=== PATIENT | female | born 1970 | race Caucasian/White ===

== ENCOUNTER → 2017-08-08 | Outpatient (CLI) | payer OTHER ==
[~2017-08-08] MED LIST: DIATR MEGLU/DIATRIZOATE SODIUM 120 ML BTL
== END | disposition home or self-care (01) ==
LOC: RAD 09:45
DX: Z93.2 Ileostomy status (principal)
CPT/HCPCS: 74270

== ENCOUNTER 2017-08-21 12:30 | Inpatient (IN) | payer OTHER ==
[2017-08-21] MEDS ORDERED: CEFAZOLIN 2 GM/50 ML (PMX) 50 ML IVPB (14:00)
[2017-08-21] MEDS ORDERED: MIDAZOLAM 1 MG/ML 2 ML INJ ×2 (14:42→14:44)
[2017-08-21] MEDS ORDERED: PROPOFOL 20 ML ×2 (14:42→15:39)
[2017-08-21] MEDS ORDERED: FENTAnyl 50 MCG/ML VIAL (14:42)
[2017-08-21] MEDS ORDERED: ROCURONIUM 50 MG INJ (14:42)
[2017-08-21] MEDS ORDERED: LIDOCAINE 2% (SDV) 5 ML INJ (14:42)
[2017-08-21] MEDS ORDERED: SUCCINYLCHOLINE CHLORIDE 100 MG/5 ML SYG IV (14:42)
[2017-08-21] MEDS ORDERED: CEFAZOLIN 1 GM INJ ×2 (15:14→15:23)
[2017-08-21] MEDS ORDERED: ONDANSETRON 4 MG INJ ×2 (15:23→16:23)
[2017-08-21] MEDS ORDERED: DEXAMETHASONE 4 MG/ML 1 ML INJ (15:23)
[2017-08-21] MEDS ORDERED: FAMOTIDINE 20 MG INJ (15:23)
[2017-08-21] MEDS ORDERED: HYDROmorphONE 2 MG/ML SYG (15:25)
[2017-08-21] MEDS: BUPIVACAINE 0.25%/EPI (SDV) 30 ML INJ (15:25)
[2017-08-21] MEDS ORDERED: hydrALAzine 20 MG INJ (15:26)
[2017-08-21] MEDS ORDERED: LABETALOL HCL 20MG INJ (15:40)
[2017-08-21] MEDS ORDERED: SUGAMMADEX SODIUM 200 MG/2 ML VIAL IV ×2 (16:01→16:02)
[2017-08-21] MEDS ORDERED: HYDROmorphONE (0.2 MG/ML) 10ML SYG IV ×3 (16:23→16:30)
[2017-08-21] MEDS ORDERED: LABETALOL HCL 20MG INJ IV (16:30)
[2017-08-21] MEDS ORDERED: hydrALAzine 20 MG INJ IV (16:30)
[2017-08-21] MEDS ORDERED: ONDANSETRON 4 MG INJ IV (16:30)
[2017-08-21] MEDS ORDERED: FENTAnyl 50 MCG/ML VIAL IV ×2 (16:30)
[2017-08-21] MEDS ORDERED: PROCHLORPERAZINE 10 MG INJ IV (16:30)
[2017-08-21] MEDS ORDERED: MEPERIDINE 25 MG INJ IV (16:30)
[2017-08-21] MEDS: HYDROmorphONE (0.2 MG/ML) 10ML SYG IV ×3 (16:41→17:02)
[2017-08-21] MEDS: CEFAZOLIN 2 GM/50 ML (PMX) 50 ML IVPB (16:45)
[2017-08-21 17:03] LABS: HEMATOCRIT 40.9 % (37.0-47.0); HEMOGLOBIN 12.9 g/dl (12.0-16.0)
[2017-08-21] MEDS: FENTAnyl 50 MCG/ML VIAL IV ×2 (17:21→18:23)
[2017-08-21] MEDS: DIPHENHYDRAMINE 50 MG INJ IV ×2 (17:25→22:03)
[2017-08-21 17:32] LABS: ANION GAP 16 (8-16); CARBON DIOXIDE 26 mmol/L (21-31); CHLORIDE 104 mmol/L (97-110); GLUCOSE 115 mg/dl (70-220)
[2017-08-21 17:38] LABS: BLOOD UREA NITROGEN 10 mg/dl (7-20); CALCIUM 9.5 mg/dl (8.4-10.2); CREATININE 0.77 mg/dl (0.44-1.00); POTASSIUM 3.7 mmol/L (3.5-5.1); SODIUM 142 mmol/L (135-144)
[2017-08-21] MEDS: D5W-0.45 NACL + KCL 10 MEQ 1,000 ML IV (20:54)
[2017-08-21] MEDS: HYDROmorphONE 0.5 MG/0.5 ML SYG IV (20:55)
[2017-08-21] MEDS: LORAZEPAM 2 MG INJ IV (22:03)
[2017-08-22] MEDS: CEFAZOLIN 2 GM/50 ML (PMX) 50 ML IVPB ×2 (00:53→09:01)
[2017-08-22] MEDS: HYDROmorphONE 0.5 MG/0.5 ML SYG IV ×7 (00:57→21:53)
[2017-08-22] MEDS: D5W-0.45 NACL + KCL 10 MEQ 1,000 ML IV ×2 (05:09→13:51)
[2017-08-22] MEDS: PANTOPRAZOLE (EC) 40 MG TAB PO (05:09)
[2017-08-22] MEDS: LORAZEPAM 2 MG INJ IV ×3 (05:22→22:41)
[2017-08-22 06:27] LABS: ADD MAN DIFF? NO
[2017-08-22 06:32] LABS: WHITE BLOOD COUNT 9.2 10^3/ul (4.8-10.8)
[2017-08-22 06:32] LABS: BASOPHILS % 0.3 % (0.0-2.0); EOSINOPHILS % 0.3 % (0.0-7.0); HEMATOCRIT 35.6 % (37.0-47.0); HEMOGLOBIN 11.5 g/dl (12.0-16.0); LYMPHOCYTES % 10.8 % (15.0-51.0); MEAN CORPUSCULAR HEMOGLOBIN 28.1 pg (29.0-33.0); MEAN CORPUSCULAR HGB CONC 32.3 g/dl (32.0-37.0); MEAN PLATELET VOLUME 9.2 fl (7.4-10.4); MONOCYTE # 0.7 10^3/ul (0.3-0.9); MONOCYTES % 7.9 % (0.0-11.0); NEUTROPHIL # 7.4 10^3/ul (1.6-7.5); NEUTROPHILS % 80.3 % (39.0-77.0); PLATELET COUNT 235 10^3/UL (140-415); RED BLOOD COUNT 4.09 10^6/ul (4.20-5.40); RED CELL DISTRIBUTION WIDTH 18.5 % (11.5-14.5)
[2017-08-22 07:01] LABS: ANION GAP 17 (8-16); BLOOD UREA NITROGEN 7 mg/dl (7-20); CARBON DIOXIDE 25 mmol/L (21-31); CHLORIDE 103 mmol/L (97-110); CREATININE 0.76 mg/dl (0.44-1.00); GLUCOSE 108 mg/dl (70-220); POTASSIUM 3.9 mmol/L (3.5-5.1); SODIUM 141 mmol/L (135-144)
[2017-08-22 07:08] LABS: INR 0.92; PROTIME 12.4 Sec (11.9-14.9)
[2017-08-22] MEDS: ENOXAPARIN 40 MG/0.4 ML SYG SC (09:04)
[2017-08-22] MEDS: KETOROLAC 15 MG INJ IV ×2 (12:33→18:21)
[2017-08-22] MEDS: ONDANSETRON 4 MG INJ IV (12:33)
[2017-08-23] MEDS: KETOROLAC 15 MG INJ IV ×4 (00:17→18:34)
[2017-08-23] MEDS: LORAZEPAM 2 MG INJ IV ×3 (02:43→22:10)
[2017-08-23] MEDS: D5W-0.45 NACL + KCL 10 MEQ 1,000 ML IV ×2 (02:49→22:09)
[2017-08-23] MEDS: HYDROmorphONE 0.5 MG/0.5 ML SYG IV ×2 (05:04→07:58)
[2017-08-23 05:09] LABS: ADD MAN DIFF? NO
[2017-08-23 05:10] LABS: WHITE BLOOD COUNT 7.1 10^3/ul (4.8-10.8)
[2017-08-23 05:10] LABS: BASOPHILS % 0.6 % (0.0-2.0); EOSINOPHILS # 0.4 10^3/ul (0.0-0.5); EOSINOPHILS % 5.6 % (0.0-7.0); HEMATOCRIT 36.5 % (37.0-47.0); HEMOGLOBIN 12.1 g/dl (12.0-16.0); LYMPHOCYTES # 1.3 10^3/ul (0.8-2.9); LYMPHOCYTES % 18.4 % (15.0-51.0); MEAN CORPUSCULAR HEMOGLOBIN 28.5 pg (29.0-33.0); MEAN CORPUSCULAR HGB CONC 33.2 g/dl (32.0-37.0); MEAN CORPUSCULAR VOLUME 86.1 fl (82.0-101.0); MONOCYTE # 0.6 10^3/ul (0.3-0.9); MONOCYTES % 8.7 % (0.0-11.0); NEUTROPHIL # 4.7 10^3/ul (1.6-7.5); NEUTROPHILS % 66.3 % (39.0-77.0); PLATELET COUNT 232 10^3/UL (140-415); RED BLOOD COUNT 4.24 10^6/ul (4.20-5.40); RED CELL DISTRIBUTION WIDTH 18.5 % (11.5-14.5)
[2017-08-23 05:32] LABS: MAGNESIUM 1.7 mg/dl (1.7-2.5)
[2017-08-23 05:32] LABS: PHOSPHORUS 3.5 mg/dl (2.5-4.9)
[2017-08-23 05:41] LABS: ANION GAP 16 (8-16); BLOOD UREA NITROGEN 5 mg/dl (7-20); CALCIUM 9.2 mg/dl (8.4-10.2); CARBON DIOXIDE 24 mmol/L (21-31); CHLORIDE 104 mmol/L (97-110); CREATININE 0.84 mg/dl (0.44-1.00); GLUCOSE 105 mg/dl (70-220); SODIUM 140 mmol/L (135-144)
[2017-08-23] MEDS: PANTOPRAZOLE (EC) 40 MG TAB PO (06:29)
[2017-08-23] MEDS: ENOXAPARIN 40 MG/0.4 ML SYG SC (10:03)
[2017-08-23] MEDS: MAGNESIUM SULFATE 2 GM/50 ML 50 ML IVPB (10:07)
[2017-08-23] MEDS ORDERED: HYDROmorphONE 2 MG TAB PO (11:30)
[2017-08-23] MEDS: HYDROmorphONE 2 MG TAB PO ×4 (12:25→21:00)
[2017-08-23] MEDS ORDERED: VITAMIN A & D 5 GM OINT PACKET TOP (18:39)
[2017-08-24] MEDS: D5W-0.45 NACL + KCL 10 MEQ 1,000 ML IV ×2 (00:05→23:04)
[2017-08-24] MEDS: KETOROLAC 15 MG INJ IV ×4 (00:49→11:54)
[2017-08-24] MEDS: OXYCODONE/ACETAMINOPHEN (10/325) TAB PO ×5 (02:17→23:14)
[2017-08-24 05:20] LABS: ADD MAN DIFF? NO
[2017-08-24 05:25] LABS: BASOPHILS % 0.5 % (0.0-2.0); EOSINOPHILS # 0.5 10^3/ul (0.0-0.5); EOSINOPHILS % 8.9 % (0.0-7.0); HEMATOCRIT 32.3 % (37.0-47.0); HEMOGLOBIN 10.5 g/dl (12.0-16.0); LYMPHOCYTES # 0.9 10^3/ul (0.8-2.9); LYMPHOCYTES % 14.7 % (15.0-51.0); MEAN CORPUSCULAR HEMOGLOBIN 28.2 pg (29.0-33.0); MEAN CORPUSCULAR HGB CONC 32.5 g/dl (32.0-37.0); MEAN CORPUSCULAR VOLUME 86.8 fl (82.0-101.0); MEAN PLATELET VOLUME 9.2 fl (7.4-10.4); MONOCYTE # 0.6 10^3/ul (0.3-0.9); MONOCYTES % 10.4 % (0.0-11.0); NEUTROPHIL # 3.8 10^3/ul (1.6-7.5); PLATELET COUNT 206 10^3/UL (140-415); RED BLOOD COUNT 3.72 10^6/ul (4.20-5.40); RED CELL DISTRIBUTION WIDTH 18.2 % (11.5-14.5)
[2017-08-24 05:25] LABS: WHITE BLOOD COUNT 5.9 10^3/ul (4.8-10.8)
[2017-08-24] MEDS: PANTOPRAZOLE (EC) 40 MG TAB PO (06:03)
[2017-08-24 06:06] LABS: ANION GAP 12 (8-16); BLOOD UREA NITROGEN 6 mg/dl (7-20); CALCIUM 8.8 mg/dl (8.4-10.2); CARBON DIOXIDE 27 mmol/L (21-31); CHLORIDE 106 mmol/L (97-110); CREATININE 0.77 mg/dl (0.44-1.00); GLUCOSE 99 mg/dl (70-220); SODIUM 141 mmol/L (135-144)
[2017-08-24 06:07] LABS: PHOSPHORUS 3.9 mg/dl (2.5-4.9)
[2017-08-24 06:07] LABS: MAGNESIUM 2.1 mg/dl (1.7-2.5)
[2017-08-24] MEDS: ENOXAPARIN 40 MG/0.4 ML SYG SC (09:37)
[2017-08-24] MEDS: ONDANSETRON 4 MG INJ IV (11:55)
[2017-08-24] MEDS: HYDROmorphONE 2 MG TAB PO ×2 (12:16→20:24)
[2017-08-24] MEDS ORDERED: ONDANSETRON 4 MG TAB PO (15:00)
[2017-08-24] MEDS ORDERED: LORAZEPAM 0.5 MG TAB PO (15:00)
[2017-08-24] MEDS: LORAZEPAM 0.5 MG TAB PO (21:34)
[2017-08-25] MEDS: OXYCODONE/ACETAMINOPHEN (10/325) TAB PO ×2 (03:45→10:00)
[2017-08-25 05:24] LABS: ADD MAN DIFF? NO
[2017-08-25 05:32] LABS: BASOPHILS % 0.4 % (0.0-2.0); EOSINOPHILS # 0.6 10^3/ul (0.0-0.5); EOSINOPHILS % 10.8 % (0.0-7.0); HEMATOCRIT 31.6 % (37.0-47.0); HEMOGLOBIN 10.4 g/dl (12.0-16.0); LYMPHOCYTES # 0.8 10^3/ul (0.8-2.9); LYMPHOCYTES % 14.5 % (15.0-51.0); MEAN CORPUSCULAR HEMOGLOBIN 28.6 pg (29.0-33.0); MEAN CORPUSCULAR HGB CONC 32.9 g/dl (32.0-37.0); MEAN CORPUSCULAR VOLUME 86.8 fl (82.0-101.0); MEAN PLATELET VOLUME 9.3 fl (7.4-10.4); MONOCYTE # 0.5 10^3/ul (0.3-0.9); MONOCYTES % 9.9 % (0.0-11.0); NEUTROPHIL # 3.5 10^3/ul (1.6-7.5); PLATELET COUNT 226 10^3/UL (140-415); RED BLOOD COUNT 3.64 10^6/ul (4.20-5.40)
[2017-08-25 05:32] LABS: WHITE BLOOD COUNT 5.5 10^3/ul (4.8-10.8)
[2017-08-25 06:07] LABS: ANION GAP 13 (8-16); BLOOD UREA NITROGEN 6 mg/dl (7-20); CALCIUM 9.1 mg/dl (8.4-10.2); CARBON DIOXIDE 27 mmol/L (21-31); CHLORIDE 105 mmol/L (97-110); CREATININE 0.75 mg/dl (0.44-1.00); GLUCOSE 101 mg/dl (70-220); POTASSIUM 3.7 mmol/L (3.5-5.1); SODIUM 141 mmol/L (135-144)
[2017-08-25 06:20] LABS: MAGNESIUM 1.7 mg/dl (1.7-2.5)
[2017-08-25 06:20] LABS: PHOSPHORUS 4.3 mg/dl (2.5-4.9)
[2017-08-25] MEDS: PANTOPRAZOLE (EC) 40 MG TAB PO (06:23)
[2017-08-25] MEDS ORDERED: VITAMIN A & D 5 GM OINT PACKET TOP (06:26)
[2017-08-25] MEDS: HYDROmorphONE 2 MG TAB PO (06:29)
[2017-08-25] MEDS ORDERED: LORAZEPAM 0.5 MG TAB PO ×2 (10:00→10:30)
[2017-08-25] MEDS ORDERED: oxyCODONE 5 MG TAB PO (10:00)
[2017-08-25] MEDS: ACETAMINOPHEN 325 MG TAB PO (11:53)
[2017-08-25] MEDS: ONDANSETRON 4 MG TAB PO (11:53)
== END 2017-08-25 13:51 | disposition home or self-care (01) | DRG 331 ==
LOC: REC 12:30 → MS1 21:33
PROC: 0DBB0ZZ Excision of Ileum, Open Approach (ICD-10-PCS; principal; 2017-08-21 14:30)
PROC: 0WQF0ZZ Repair Abdominal Wall, Open Approach (ICD-10-PCS; 2017-08-21 14:30)
PROC: 0D7Q8ZZ Dilation of Anus, Via Natural or Artificial Opening Endoscopic (ICD-10-PCS; 2017-08-21 14:30)
DX: Z43.2 Encounter for attention to ileostomy (principal); K62.4 Stenosis of anus and rectum; K43.5 Parastomal hernia without obstruction or gangrene; Z85.048 Personal history of other malignant neoplasm of rectum, rectosigmoid junction, and anus; Z92.21 Personal history of antineoplastic chemotherapy; Z92.3 Personal history of irradiation
CPT/HCPCS: 80048; 83735; 84100; 84703; 85014; 85018; 85025; 85610; 87086; 88305; 97116; 97530

== ENCOUNTER 2017-12-19 11:57 | Day surgery (SDC) | payer OTHER ==
[~2017-12-19 11:57] MED LIST changes: +BUPIVACAINE 0.5%/EPI (SDV) 30 ML INJ; -DIATR MEGLU/DIATRIZOATE SODIUM 120 ML BTL; +METOCLOPRAMIDE 10 MG INJ
[2017-12-19] MEDS: LACTATED RINGER'S 1,000 ML IV* (13:00)
[2017-12-19] MEDS ORDERED: ROCURONIUM 50 MG INJ (13:33)
[2017-12-19] MEDS ORDERED: CEFAZOLIN 1 GM INJ (13:33)
[2017-12-19] MEDS ORDERED: PROPOFOL 20 ML (13:33)
[2017-12-19] MEDS ORDERED: MIDAZOLAM 1 MG/ML 2 ML INJ (13:34)
[2017-12-19] MEDS ORDERED: ROPIVACAINE 0.5 % 30 ML VIAL (13:36)
[2017-12-19] MEDS: ROPIVACAINE 0.5 % 30 ML VIAL (14:48)
[2017-12-19] MEDS: POLYMYXIN/BACITRACIN 1L IRRIG (14:48)
[2017-12-19] MEDS ORDERED: LABETALOL HCL 20MG INJ (14:49)
[2017-12-19] MEDS ORDERED: ONDANSETRON 4 MG INJ (14:50)
[2017-12-19] MEDS ORDERED: ACETAMINOPHEN 1000MG/100ML IV 100 ML (14:50)
[2017-12-19] MEDS ORDERED: KETOROLAC 30 MG INJ (14:50)
[2017-12-19] MEDS ORDERED: SUGAMMADEX SODIUM 200 MG/2 ML VIAL IV (14:50)
[2017-12-19] MEDS ORDERED: DEXAMETHASONE 4 MG/ML 1 ML INJ (14:50)
[2017-12-19] MEDS ORDERED: hydrALAzine 20 MG INJ (14:57)
[2017-12-19] MEDS ORDERED: EPHEDrine SULFATE 50 MG/5 ML SYG IV (15:00)
[2017-12-19] MEDS ORDERED: HYDROmorphONE (0.2 MG/ML) 10ML SYG IV ×2 (15:00)
[2017-12-19] MEDS ORDERED: OXYCODONE/ACETAMINOPHEN (5/325) TAB PO ×2 (15:00)
[2017-12-19] MEDS ORDERED: METOCLOPRAMIDE 10 MG INJ IV (15:00)
[2017-12-19] MEDS ORDERED: FENTAnyl 50 MCG/ML VIAL IV ×2 (15:00)
[2017-12-19] MEDS ORDERED: ONDANSETRON 4 MG INJ IV ×2 (15:00→16:00)
[2017-12-19] MEDS ORDERED: hydrALAzine 20 MG INJ IV (15:00)
[2017-12-19] MEDS ORDERED: MEPERIDINE 25 MG INJ IV (15:00)
[2017-12-19] MEDS ORDERED: LABETALOL HCL 20MG INJ IV (15:00)
[2017-12-19] MEDS ORDERED: FENTAnyl 50 MCG/ML VIAL (15:33)
[2017-12-19] MEDS: D5W-0.45 NACL + KCL 10 MEQ 1,000 ML IV ×2 (15:47→22:05)
[2017-12-19] MEDS: HYDROmorphONE (0.2 MG/ML) 10ML SYG IV (15:59)
[2017-12-19] MEDS: CEFAZOLIN 2 GM/50 ML (PMX) 50 ML IVPB ×3 (16:00→23:48)
[2017-12-19] MEDS ORDERED: DIPHENHYDRAMINE 50 MG INJ IV (16:00)
[2017-12-19] MEDS ORDERED: LORAZEPAM 2 MG INJ IV (16:00)
[2017-12-19] MEDS: FENTAnyl 50 MCG/ML VIAL IV (16:17)
[2017-12-19] MEDS: DIPHENHYDRAMINE 50 MG INJ IV (16:50)
[2017-12-19 17:20] LABS: HEMATOCRIT 37.7 % (37.0-47.0); HEMOGLOBIN 12.7 g/dl (12.0-16.0)
[2017-12-19 17:38] LABS: ANION GAP 12 (8-16); CARBON DIOXIDE 30 mmol/L (21-31); CHLORIDE 100 mmol/L (97-110); GLUCOSE 116 mg/dl (70-220)
[2017-12-19 17:40] LABS: BLOOD UREA NITROGEN 9 mg/dl (7-20); CREATININE 0.77 mg/dl (0.44-1.00); SODIUM 138 mmol/L (135-144)
[2017-12-19] MEDS: HYDROmorphONE 0.5 MG/0.5 ML SYG IV (19:21)
[2017-12-19] MEDS: HYDROCODONE/APAP (10/325) TAB PO (21:04)
[2017-12-19] MEDS: HYDROmorphONE 2 MG/ML SYG IV (22:05)
[2017-12-19] MEDS: LORAZEPAM 2 MG INJ IV (23:49)
[2017-12-20] MEDS: HYDROmorphONE 2 MG/ML SYG IV ×5 (04:31→21:37)
[2017-12-20 05:35] LABS: ADD MAN DIFF? NO
[2017-12-20 05:38] LABS: BASOPHILS % 0.1 % (0.0-2.0); HEMATOCRIT 35.5 % (37.0-47.0); HEMOGLOBIN 11.8 g/dl (12.0-16.0); LYMPHOCYTES # 0.8 10^3/ul (0.8-2.9); LYMPHOCYTES % 5.3 % (15.0-51.0); MEAN CORPUSCULAR HEMOGLOBIN 31.6 pg (29.0-33.0); MEAN CORPUSCULAR HGB CONC 33.2 g/dl (32.0-37.0); MEAN CORPUSCULAR VOLUME 94.9 fl (82.0-101.0); MONOCYTE # 0.9 10^3/ul (0.3-0.9); MONOCYTES % 5.9 % (0.0-11.0); NEUTROPHIL # 13.1 10^3/ul (1.6-7.5); NEUTROPHILS % 88.1 % (39.0-77.0); PLATELET COUNT 203 10^3/UL (140-415); RED BLOOD COUNT 3.74 10^6/ul (4.20-5.40)
[2017-12-20 05:38] LABS: WHITE BLOOD COUNT 14.8 10^3/ul (4.8-10.8)
[2017-12-20 06:09] LABS: ANION GAP 15 (8-16); BLOOD UREA NITROGEN 10 mg/dl (7-20); CALCIUM 9.6 mg/dl (8.4-10.2); CARBON DIOXIDE 28 mmol/L (21-31); CHLORIDE 105 mmol/L (97-110); CREATININE 0.76 mg/dl (0.44-1.00); GLUCOSE 138 mg/dl (70-220); POTASSIUM 4.5 mmol/L (3.5-5.1); SODIUM 143 mmol/L (135-144)
[2017-12-20 06:15] LABS: PROTIME 14.4 Sec (11.9-14.9); PT RATIO 1.1
[2017-12-20] MEDS: PANTOPRAZOLE (EC) 40 MG TAB PO (06:38)
[2017-12-20] MEDS: LORAZEPAM 2 MG INJ IV ×3 (06:39→18:54)
[2017-12-20] MEDS: CEFAZOLIN 2 GM/50 ML (PMX) 50 ML IVPB (08:06)
[2017-12-20] MEDS: OXYCODONE/ACETAMINOPHEN (10/325) TAB PO ×2 (09:54→20:43)
[2017-12-20] MEDS: D5W-0.45 NACL + KCL 10 MEQ 1,000 ML IV (13:08)
[2017-12-20] MEDS: AMITRIPTYLINE 10 MG TAB PO (20:40)
[2017-12-21] MEDS: LORAZEPAM 2 MG INJ IV ×2 (00:44→06:42)
[2017-12-21] MEDS: D5W-0.45 NACL + KCL 10 MEQ 1,000 ML IV (00:49)
[2017-12-21] MEDS: HYDROmorphONE 2 MG/ML SYG IV ×2 (01:11→04:31)
[2017-12-21] MEDS: PANTOPRAZOLE (EC) 40 MG TAB PO (06:41)
[2017-12-21] MEDS: KETOROLAC 15 MG INJ IV ×2 (08:33→14:19)
[2017-12-21] MEDS: OXYCODONE/ACETAMINOPHEN (10/325) TAB PO (09:24)
[2017-12-21 10:20] LABS: ADD MAN DIFF? NO
[2017-12-21 10:25] LABS: ABNORMAL IP MESSAGE 1; BASOPHILS % 0.1 % (0.0-2.0); EOSINOPHILS # 0.3 10^3/ul (0.0-0.5); EOSINOPHILS % 2.8 % (0.0-7.0); HEMATOCRIT 33.2 % (37.0-47.0); HEMOGLOBIN 11.1 g/dl (12.0-16.0); LYMPHOCYTES % 10.8 % (15.0-51.0); MEAN CORPUSCULAR HEMOGLOBIN 32.7 pg (29.0-33.0); MEAN CORPUSCULAR HGB CONC 33.4 g/dl (32.0-37.0); MEAN CORPUSCULAR VOLUME 97.9 fl (82.0-101.0); MEAN PLATELET VOLUME 9.7 fl (7.4-10.4); NEUTROPHIL # 6.7 10^3/ul (1.6-7.5); NEUTROPHILS % 74.7 % (39.0-77.0); PLATELET COUNT 183 10^3/UL (140-415); RED BLOOD COUNT 3.39 10^6/ul (4.20-5.40); RED CELL DISTRIBUTION WIDTH 22.5 % (11.5-14.5)
== END 2017-12-21 15:15 | disposition home or self-care (01) ==
LOC: SDS 11:57 → REC 18:00 → SDS 12-21 15:15 → MS1 18:00 → REC 15:55 → MS1 18:00
DX: I10 Essential (primary) hypertension (principal)
CPT/HCPCS: 49560; 80048; 85014; 85018; 85025; 85610; 88302; 97161

== ENCOUNTER 2018-07-02 07:46 | Day surgery (SDC) | payer OTHER | END 2018-07-02 11:54 | disposition home or self-care (01) | LOC: GIL 07:46 | DX: K22.10 Ulcer of esophagus without bleeding (principal); K29.50 Unspecified chronic gastritis without bleeding; K29.80 Duodenitis without bleeding; I10 Essential (primary) hypertension; Z85.048 Personal history of other malignant neoplasm of rectum, rectosigmoid junction, and anus | CPT/HCPCS: 43239; 88305; 88312 ==

== ENCOUNTER 2018-09-09 10:48 | Observation (INO) | payer OTHER ==
[~2018-09-09 10:48] MED LIST changes: -BUPIVACAINE 0.5%/EPI (SDV) 30 ML INJ; +CEFAZOLIN 1 GM INJ; -METOCLOPRAMIDE 10 MG INJ; +SUCCINYLCHOLINE CHLORIDE 100 MG/5 ML SYG IV
[2018-09-09] MEDS ORDERED: GLYCOPYRROLATE 0.4 MG INJ (10:59)
[2018-09-09] MEDS ORDERED: MIDAZOLAM 1 MG/ML 2 ML INJ (10:59)
[2018-09-09] MEDS ORDERED: LIDOCAINE 2% (SDV) 5 ML INJ (10:59)
[2018-09-09] MEDS ORDERED: NEOSTIGMINE 3 MG/3 ML SYRINGE (10:59)
[2018-09-09] MEDS ORDERED: ROCURONIUM 50 MG INJ (10:59)
[2018-09-09] MEDS ORDERED: PROPOFOL 20 ML (10:59)
[2018-09-09] MEDS ORDERED: FENTAnyl 50 MCG/ML VIAL (10:59)
[2018-09-09] MEDS ORDERED: ONDANSETRON 4 MG INJ (11:00)
[2018-09-09] MEDS ORDERED: DEXAMETHASONE 4 MG/ML 5 ML INJ (11:00)
[2018-09-09] MEDS ORDERED: LACTATED RINGER'S 1,000 ML IV (12:30)
[2018-09-09] MEDS: LACTATED RINGER'S 1,000 ML IV ×2 (13:57→22:40)
[2018-09-09] MEDS ORDERED: ONDANSETRON 4 MG INJ IV ×2 (14:00→15:00)
[2018-09-09] MEDS ORDERED: HYDROCODONE/APAP (10/325) TAB PO (14:00)
[2018-09-09] MEDS ORDERED: DIPHENHYDRAMINE 50 MG INJ IV (14:00)
[2018-09-09] MEDS: BUPIVACAINE 0.25% (MPF) 30 ML INJ (14:30)
[2018-09-09] MEDS: KETOROLAC 15 MG INJ IV ×2 (14:30→20:35)
[2018-09-09] MEDS: CEFAZOLIN 2 GM/50 ML (PMX) 50 ML IVPB ×2 (14:31→21:30)
[2018-09-09 14:36] LABS: ADD UMIC NO; UR ASCORBIC ACID NEGATIVE (NEGATIVE); UR BILIRUBIN (Dip) NEGATIVE (NEGATIVE); UR BLOOD (Dip) NEGATIVE (NEGATIVE); UR CLARITY CLEAR (CLEAR); UR COLOR COLORLESS (YELLOW); UR GLUCOSE (Dip) NEGATIVE (NEGATIVE); UR KETONES (Dip) TRACE mg/dL (NEGATIVE); UR LEUKOCYTE ESTERASE (Dip) NEGATIVE Leu/ul (NEGATIVE); UR NITRITE (Dip) NEGATIVE (NEGATIVE); UR SPECIFIC GRAVITY (Dip) 1.005 (1.003-1.030); UR TOTAL PROTEIN (Dip) NEGATIVE (NEGATIVE); UR UROBILINOGEN (Dip) NEGATIVE (NEGATIVE)
[2018-09-09] MEDS: HYDROmorphONE 0.5 MG/0.5 ML SYG IV ×2 (14:53→18:45)
[2018-09-09] MEDS ORDERED: HYDROmorphONE 1 MG/5 ML IV SYRINGE IV ×3 (15:00→15:29)
[2018-09-09] MEDS ORDERED: MEPERIDINE 25 MG INJ IV (15:00)
[2018-09-09] MEDS ORDERED: hydrALAzine 20 MG INJ IV (15:00)
[2018-09-09] MEDS ORDERED: FENTAnyl 50 MCG/ML VIAL IV ×3 (15:00)
[2018-09-09] MEDS ORDERED: morphine (1 MG/ML) 10ML SYRINGE IV (15:00)
[2018-09-09] MEDS: ACETAMINOPHEN 1000MG/100ML IV 100 ML IVPB ×2 (15:02→20:07)
[2018-09-09 15:04] LABS: HEMATOCRIT 38.3 % (37.0-47.0); HEMOGLOBIN 12.4 g/dl (12.0-16.0)
[2018-09-09 15:26] LABS: ANION GAP 7 (5-13); BLOOD UREA NITROGEN 8 mg/dl (7-20); CALCIUM 9.4 mg/dl (8.4-10.2); CARBON DIOXIDE 27 mmol/L (21-31); CHLORIDE 104 mmol/L (97-110); CREATININE 0.85 mg/dl (0.44-1.00); Estimated GFR > 60 mL/min (>60); GLUCOSE 108 mg/dl (70-220); POTASSIUM 4.2 mmol/L (3.5-5.1); SODIUM 138 mmol/L (135-144)
[2018-09-09] MEDS: HYDROmorphONE 1 MG/5 ML IV SYRINGE IV (15:46)
[2018-09-09] MEDS: OXYCODONE/ACETAMINOPHEN (10/325) TAB PO ×2 (16:45→21:32)
[2018-09-09] MEDS: LORAZEPAM 2 MG INJ IV (22:34)
[2018-09-10] MEDS: ACETAMINOPHEN 1000MG/100ML IV 100 ML IVPB ×3 (02:13→13:21)
[2018-09-10] MEDS: KETOROLAC 15 MG INJ IV ×2 (02:53→13:19)
[2018-09-10] MEDS: CEFAZOLIN 2 GM/50 ML (PMX) 50 ML IVPB (05:11)
[2018-09-10 05:15] LABS: ADD MAN DIFF? NO
[2018-09-10 05:27] LABS: WHITE BLOOD COUNT 8.6 10^3/ul (4.8-10.8)
[2018-09-10 05:27] LABS: BASOPHILS % 0.1 % (0.0-2.0); HEMATOCRIT 36.2 % (37.0-47.0); LYMPHOCYTES # 0.9 10^3/ul (0.8-2.9); LYMPHOCYTES % 10.8 % (15.0-51.0); MEAN CORPUSCULAR HEMOGLOBIN 28.8 pg (29.0-33.0); MEAN CORPUSCULAR HGB CONC 33.1 g/dl (32.0-37.0); MEAN PLATELET VOLUME 10.2 fl (7.4-10.4); MONOCYTE # 0.5 10^3/ul (0.3-0.9); MONOCYTES % 5.9 % (0.0-11.0); NEUTROPHIL # 7.2 10^3/ul (1.6-7.5); NEUTROPHILS % 82.7 % (39.0-77.0); PLATELET COUNT 277 10^3/UL (140-415); RED BLOOD COUNT 4.16 10^6/ul (4.20-5.40); RED CELL DISTRIBUTION WIDTH 14.4 % (11.5-14.5)
[2018-09-10 05:38] LABS: INR 0.98; PROTIME 13.1 Sec (11.9-14.9)
[2018-09-10 06:06] LABS: ANION GAP 9 (5-13); BLOOD UREA NITROGEN 8 mg/dl (7-20); CALCIUM 9.3 mg/dl (8.4-10.2); CARBON DIOXIDE 25 mmol/L (21-31); CHLORIDE 104 mmol/L (97-110); CREATININE 0.82 mg/dl (0.44-1.00); Estimated GFR > 60 mL/min (>60); GLUCOSE 109 mg/dl (70-220); POTASSIUM 4.3 mmol/L (3.5-5.1); SODIUM 138 mmol/L (135-144)
[2018-09-10] MEDS: PANTOPRAZOLE (EC) 40 MG TAB PO (06:06)
[2018-09-10] MEDS: OXYCODONE/ACETAMINOPHEN (10/325) TAB PO ×3 (06:06→17:41)
[2018-09-10] MEDS: ENOXAPARIN 30 MG/0.3 ML SYG SC (06:09)
[2018-09-10] MEDS: POLYETHYLENE GLYCOL 17 GM PACKET PO (09:55)
[2018-09-10] MEDS: LORAZEPAM 2 MG INJ IV (15:11)
[2018-09-10] MEDS: LACTATED RINGER'S 1,000 ML IV (18:33)
== END 2018-09-10 18:30 | disposition home health service (06) ==
LOC: SDS 10:48 → REC 14:48 → MS1 16:17
DX: K43.2 Incisional hernia without obstruction or gangrene (principal)
CPT/HCPCS: 49560; 80048; 81003; 84703; 85014; 85018; 85025; 85610; 87086; 97116; 97162

== ENCOUNTER 2019-04-11 10:41 | Day surgery (SDC) | payer OTHER | END 2019-04-11 14:24 | disposition home or self-care (01) | LOC: GIL 10:41 | DX: D17.5 Benign lipomatous neoplasm of intra-abdominal organs (principal); Z85.048 Personal history of other malignant neoplasm of rectum, rectosigmoid junction, and anus; I10 Essential (primary) hypertension | CPT/HCPCS: 45385; 84703; 88305 ==

== ENCOUNTER 2019-04-16 19:38 | Emergency (ER) | payer OTHER ==
[2019-04-16 21:12] LABS: ADD MAN DIFF? NO
[2019-04-16 21:14] LABS: WHITE BLOOD COUNT 6.9 10^3/ul (4.8-10.8)
[2019-04-16 21:14] LABS: BASOPHILS % 0.6 % (0.0-2.0); EOSINOPHILS # 0.4 10^3/ul (0.0-0.5); EOSINOPHILS % 5.8 % (0.0-7.0); HEMATOCRIT 34.9 % (37.0-47.0); HEMOGLOBIN 10.9 g/dl (12.0-16.0); LYMPHOCYTES % 28.6 % (15.0-51.0); MEAN CORPUSCULAR HEMOGLOBIN 27.7 pg (29.0-33.0); MEAN CORPUSCULAR HGB CONC 31.2 g/dl (32.0-37.0); MEAN CORPUSCULAR VOLUME 88.8 fl (82.0-101.0); MEAN PLATELET VOLUME 9.8 fl (7.4-10.4); MONOCYTE # 0.6 10^3/ul (0.3-0.9); NEUTROPHIL # 3.8 10^3/ul (1.6-7.5); NEUTROPHILS % 55.6 % (39.0-77.0); PLATELET COUNT 256 10^3/UL (140-415); RED BLOOD COUNT 3.93 10^6/ul (4.20-5.40); RED CELL DISTRIBUTION WIDTH 15.3 % (11.5-14.5)
[2019-04-16 21:32] LABS: ALANINE AMINOTRANSFERASE 28 IU/L (13-69); ALBUMIN 4.2 g/dl (3.3-4.9); ALBUMIN/GLOBULIN RATIO 1.31; ALKALINE PHOSPHATASE 81 IU/L (42-121); ANION GAP 6 (5-13); ASPARTATE AMINO TRANSFERASE 22 IU/L (15-46); BILIRUBIN,INDIRECT 0.2 mg/dl (0-1.1); BILIRUBIN,TOTAL 0.2 mg/dl (0.2-1.3); BLOOD UREA NITROGEN 14 mg/dl (7-20); CALCIUM 9.7 mg/dl (8.4-10.2); CARBON DIOXIDE 26 mmol/L (21-31); CHLORIDE 106 mmol/L (97-110); CREATININE 0.85 mg/dl (0.44-1.00); Estimated GFR > 60 mL/min (>60); GLUCOSE 92 mg/dl (70-220); POTASSIUM 4.3 mmol/L (3.5-5.1); SODIUM 138 mmol/L (135-144); TOTAL PROTEIN 7.4 g/dl (6.1-8.1)
[2019-04-16 21:34] LABS: INR 0.88; PT RATIO 0.9
[2019-04-16 21:35] LABS: PARTIAL THROMBOPLASTIN TIME 35.1 Sec (23.0-35.0)
[2019-04-16 21:44] LABS: TROPONIN-I < 0.012 ng/ml (0.000-0.120)
[2019-04-16 21:44] LABS: B-TYPE NATRIURETIC PEPTIDE 87 PG/ML (0-125)
== END 2019-04-17 00:10 | disposition home or self-care (01) ==
LOC: E/R 04-17 00:10
DX: K62.5 Hemorrhage of anus and rectum (principal); I10 Essential (primary) hypertension
CPT/HCPCS: 71045; 74176; 80053; 83880; 84484; 84703; 85025; 85610; 85730; 93005; 99285-25